=== PATIENT | male | born 1970 | race Caucasian/White ===

== ENCOUNTER 2017-01-07 18:06 | Emergency (ER) | payer OTHER | END 2017-01-07 21:31 | disposition home or self-care (01) | LOC: FER 18:06 | DX: S80.02XA Contusion of left knee, initial encounter (principal); M25.512 Pain in left shoulder; Z23 Encounter for immunization; V49.40XA Driver injured in collision with unspecified motor vehicles in traffic accident, initial encounter; Y92.410 Unspecified street and highway as the place of occurrence of the external cause | CPT/HCPCS: 73564; 90471; 90715 ==